=== PATIENT | male | born 1960 | race Caucasian/White ===

== ENCOUNTER 2017-01-19 14:13 | Emergency (ER) | payer OTHER ==
--- NOTE | 2017-01-19 14:53 | PHYS DOC ---
Past History Past Medical History: Other Past Surgical History: Tonsillectomy Alcohol Use: Occasionally Drug Use: None Adult General Chief Complaint Chief Complaint: DIZZY/LIGHT HEADED HPI HPI Patient is a 56 year old M who presents with lightheadedness over the past few days. He states that he has been feeding more animals recently and he has noted a moderate amount of debris in the air. He has been having more watering of the eyes associated with his symptoms. He does not have symptoms at this time. Review of Systems Review of Systems Constitutional: Denies fever or chills [] Eyes: Denies change in visual acuity, redness, or eye pain [] HENT: Denies sore throat [] Mild nasal congestion Respiratory: Denies cough or shortness of breath [] Cardiovascular: No additional information not addressed in HPI [] GI: Denies abdominal pain, nausea, vomiting, bloody stools or diarrhea [] : Denies dysuria or hematuria [] Musculoskeletal: Denies back pain or joint pain [] Integument: Denies rash or skin lesions [] Neurologic: Denies headache, focal weakness or sensory changes [] Endocrine: Denies polyuria or polydipsia [] Family History Family History noncontributory Current Medications Current Medications reviewed Allergies Allergies reviewed Physical Exam Physical Exam Constitutional: Well developed, well nourished, no acute distress, non-toxic appearance. [] HENT: Normocephalic, atraumatic, Mild nasal congestion bilaterally Eyes: PERRLA, EOMI, conjunctiva normal, no discharge. [] Neck: Normal range of motion, no tenderness, supple, no stridor. [] Cardiovascular:Heart rate regular rhythm, no murmur [] Lungs & Thorax: Bilateral breath sounds clear to auscultation [] Abdomen: Bowel sounds normal, soft, no tenderness, no masses, no pulsatile masses. [] Skin: Warm, dry, no erythema, no rash. [] Back: No tenderness, no CVA tenderness. [] Extremities: No tenderness, no cyanosis, no clubbing, ROM intact, no edema. [] Neurologic: Alert and oriented X 3, normal motor function, normal sensory function, no focal deficits noted. [] Psychologic: Affect normal, judgement normal, mood normal. [] Current Patient Data Vital Signs Vital Signs Date Time Temp Pulse Resp B/P (MAP) Pulse Ox O2 Delivery O2 Flow Rate FiO2 01/19/17 14:20 98.1 76 21 98 Room Air Course & Med Decision Making Course & Med Decision Making Pertinent Labs and Imaging studies reviewed. (See chart for details) [] Dragon Disclaimer Dragon Disclaimer This chart was dictated in whole or in part using Voice Recognition software in a busy, high-work load, and often noisy Emergency Department environment. It may contain unintended and wholly unrecognized errors or omissions. Departure Departure: Impression: Primary Impression: Rhinitis Disposition: HOME, SELF-CARE Referrals: RIA DE LEON MD (PCP) Patient Instructions: Allergic Rhinitis Additional Instructions: Mac was seen in the ED for lightheadedness. No emergency medical condition was found during the history and physical exam. His symptoms were consistent with an upper airway irritation. He was advised to use nasal steroids and nasal saline rinses. He was advised to follow up with his primary care doctor as needed Problem Qualifiers Primary Impression: Rhinitis Rhinitis type: unspecified Chronicity: unspecified Qualified Codes: J31.0 - Chronic rhinitis RAY DE LUNA MD Jan 19, 2017 14:53
[2017-01-19 15:04] VITALS: BP 141/95
== END 2017-01-19 15:04 | disposition home or self-care (01) ==
LOC: ER 14:13
DX: J31.0 Chronic rhinitis (principal)
CPT/HCPCS: 99281

== ENCOUNTER 2021-06-29 12:33 | Emergency (ER) | payer OTHER ==
[~2021-06-29] VITALS: Ht 182.9 cm; Wt 85.0 kg
--- NOTE | 2021-06-29 13:08 | RAD ---
EXAMINATION: Chest radiograph. VIEWS: 2 COMPARISON: None INDICATION:60 years, Male, cough. FINDINGS: Normal cardiomediastinal silhouette. Subtle patchy airspace opacities in bilateral perihilar and biba silar lungs. No pleural effusion or pneumothorax. No acute osseous process. IMPRESSION: Subtle patchy airspace opacities in bilateral perihilar and bibasilar lungs, may represent atelectati c changes versus atypical pneumonia. Recommend correlation with Covid 19 test. Electronically signed by: Stephan Severino MD (06/29/2021 1:06 PM) [id number]
--- NOTE | 2021-06-29 14:44 | PHYS DOC ---
Past History Past Medical History: Other Additional Past Medical Histor: CLL Past Surgical History: Tonsillectomy Alcohol Use: Occasionally Drug Use: None Adult General Chief Complaint Chief Complaint: COUGH HPI HPI Patient is a 60-year-old male who presents emergency department complaining of chest congestion with nonproductive cough, body aches and general malaise since this past . Patient denies being vaccinated for the COVID-19 virus or flu this year. Patient denies chest pains, chest palpitations, nausea, vomiting, diarrhea. Patient reports she was sent here by his primary care physician's office from Dr. Martinez with concerns he may have the COVID-19 virus. Patient wishes to be checked today. Patient does report a history of chronic lymphocytic leukemia, however states his oncologist told him his blood work was fine and does not show any signs of this disease and DC'd all of his cancer medications, will be evaluated in 3 months at the cancer clinic. Patient denies other physical complaints or physical concerns. Review of Systems Review of Systems 14 body systems of review of systems have been reviewed. See HPI for pertinent positives and negative responses, otherwise all other systems are negative, nonpertinent or noncontributory. Constitutional: Negative except as outlined in HPI above. Skin: Negative except as outlined in HPI above. Eyes: Negative except as outlined in HPI above. HENT: Negative except as outlined in HPI above. Respiratory: Negative except as outlined in HPI above. Cardiovascular: Negative except as outlined in HPI above. GI: Negative except as outlined in HPI above. : Negative except as outlined in HPI above. Musculoskeletal: Negative except as outlined in HPI above. Integument: Negative except as outlined in HPI above. Neurologic: Negative except as outlined in HPI above. Endocrine: Negative except as outlined in HPI above. Lymphatic: Negative except as outlined in HPI above. Psychiatric: Negative except as outlined in HPI above. Allergies Allergies Allergies Coded Allergies Type Severity Reaction Last Updated Verified No Known Drug Allergies 01/19/17 No Physical Exam Physical Exam Constitutional: Well developed, well nourished, no acute distress, non-toxic appearance. 60-year-old male in no apparent distress. HENT: Normocephalic, atraumatic. Eyes: Conjunctiva normal, no discharge. Neck: Normal range of motion, no stridor. Cardiovascular: No cyanosis appreciated, distal cap refill less than 2 seconds. Heart sounds S1-S2, tachycardic rate at 102 during physical examination. Lungs & Thorax: Patient is in no respiratory distress, no audible adventitious lung sounds appreciated. Lung sounds diminished in the bases bilaterally otherwise clear to auscultation all upper lung cid. Abdomen: Nontender, no abnormalities noted. Skin: Warm, dry, no erythema, no rash. Back: No tenderness, no deformities. Extremities: No tenderness, no cyanosis, no clubbing, ROM intact, no edema. Neurologic: Alert and oriented X 3, normal motor function, normal sensory function, no focal deficits noted. Psychologic: Affect normal, judgement normal, mood normal. Current Patient Data Vital Signs Vital Signs Date Time Temp Pulse Resp B/P (MAP) Pulse Ox O2 Delivery O2 Flow Rate FiO2 06/29/21 12:43 99.7 112 20 186/85 (118) 96 Room Air EKG EKG [] Radiology/Procedures Radiology/Procedures SEX: M EXAM STATUS: REG ER ORD. PHYSICIAN: EYAL RAMÍREZ DO REASON: cough PROCEDURE: CHEST PA & LATERAL EXAMINATION: Chest radiograph. VIEWS: 2 COMPARISON: None INDICATION:60 years, Male, cough. FINDINGS: Normal cardiomediastinal silhouette. Subtle patchy airspace opacities in bilateral perihilar and bibasilar lungs. No pleural effusion or pneumothorax. No acute osseous process. IMPRESSION: Subtle patchy airspace opacities in bilateral perihilar and bibasilar lungs, may represent atelectatic changes versus atypical pneumonia. Recommend correlation with Covid 19 test. Electronically signed by: Priscilla Severino MD (06/29/2021 1:06 PM) [id number] DICTATED AND SIGNED BY: PRISCILLA SEVERINO MD DATE: 06/29/21 1305 Heart Score C/O Chest Pain: No Risk Factors: Risk Factors: DM, Current or recent (<one month) smoker, HTN, HLP, family history of CAD, obesity. Risk Scores: Risk Factors: DM, Current or recent (<one month) smoker, HTN, HLP, family history of CAD, obesity. Course & Med Decision Making Course & Med Decision Making Pertinent Labs and Imaging studies reviewed. (See chart for details) 60-year-old male, vital signs reviewed, presents emergency department concerning COVID-19 virus symptoms. Physical examination concerning for viral illness, will order chest x-ray, COVID-19 testing. Patient chest x-ray consistent with viral pneumonia, suspicious for COVID-19 pneumonia, PCR/COVID-19 pending, will give Tylenol and Motrin for mild discomfort, 10 mg Decadron p.o., start azithromycin regimen. Discussed findings and ED discharge planning with patient, patient gave verbal u nderstanding of and is amenable to ED discharge planning, states he will follow with Dr. Martinez this coming week, reviewed return to ER precautions and concerns, strict return to ER for increased shortness of breath or development of chest pains, fevers, or other concerns. The patient remains nontoxic in appearance, he is not hypoxic, reevaluation of vital signs remained stable. Discussed with the patient all findings and diagnostic testing as well as the need to follow-up with their primary care provider for further evaluation and treatment or return to the ED if any new or worsening symptoms. Strict return precautions were also discussed at length, the patient voiced understanding and agreement with the discharge planning. The patient was nontoxic in appearance, in no apparent distress, and hemodynamically stable at the time of disposition. Dragon Disclaimer Dragon Disclaimer This electronic medical record was generated, in whole or in part, using a voice recognition dictation system. Departure Departure: Impression: Primary Impression: Atypical pneumonia Additional Impression: Person under investigation for COVID-19 Disposition: HOME / SELF CARE / HOMELESS Condition: GOOD Referrals: RIA MARTINEZ MD (PCP) Additional Instructions: You were seen today in the emergency department for viral illness type signs and symptoms. A COVID-19 test was drawn today and is still pending. Your chest x- ray shows concerning signs of a viral pneumonia, at this point you are a PUI which is a person under investigation for Covid19 infection. I have attached COVID-19 virus information to this document, please review. You were given Decadron and started on a antibiotic azithromycin regimen, as we discussed please take the antibiotic as prescribed until complete, use [id number] Tylenol and/or Motrin for returning body aches and pains, fevers and chills, please practice safe social distancing, return immediately to the emergency department for increased shortness of breath, inability to breathe, development of chest pains, or other concerns. Thank you for visiting our Emergency Department. It was a pleasure taking care of you today in the emergency department and we appreciate you trusting us with your care. If any additional problems come up don't hesitate to return to visit us. Please follow up with your primary care provider so they can plan additional care if needed and know about the problem that you had. If symptoms worsen come back to the Emergency Department. Any concerning symptoms that start such as chest pain, shortness of air, weakness or numbness on one side of the body, running high fevers or any other concerning symptoms return to the ER. EMERGENCY DEPARTMENT GENERAL DISCHARGE INSTRUCTIONS Thank you for coming to [facility] (ED) today and trusting us with you care. We trust that you had a positivie experience in our Emergency Department. If you wish to speak to the department management, you may call the director at [phone]. YOUR FOLLOW UP INSTRUCTIONS ARE FOLLOWS: 1. Do you have a private Doctor? If you do not have a private doctor, please ask for a resource list of physicians or clinics that may be able to assist you with follow up care. 2. The Emergency Physician has interpreted your x-rays. The X-Ray specialist will also review them. If there is a change in the findings, you will be notified in 48 hours when at all possible. 3. A lab test or culture has been done, your results will be reviewed and you will be notified if you need a change in treatment. ADDITIONAL INSTRUCTIONS AND INFORMATION: 1. Your care today has been supervised by a physician who is specially trained in emergency care. Many problems require more than one evaluation for a complete diagnosis and treatment. We recommend that you schedule your follow up appointment as recommended to ensure complete treatment of you illness or injury. If you are unable to obtain follow up care and continue to have a problem, or if your condition worsens, we recommend that you return to the ED. 2. We are not able to safely determine your condition over the phone nor are we able to give sound medical advice over the phone. For these safety reasons, if you call for medical advice we will ask you to come to the ED for further evaluation. 3. If you have any questions regarding these discharge instructions please call the ED at [phone]. SAFETY INFORMATION: In the interest of safety, wellness, and injury prevention; we encourage you to wear your sealbelt, if you smoke; quite smoking, and we encourage family to use a protective helmet for bicycling and other sporting events that present an increased risk for head injury. IF YOUR SYMPTOMS WORSEN OR NEW SYMPTOMS DEVELOP, OR YOU HAVE CONCERNS ABOUT YOUR CONDITION; OR IF YOUR CONDITION WORSENS WHILE YOU ARE WAITING FOR YOUR FOLLOW UP APPOINTMENT; EITHER CONTACT YOUR PRIMARY CARE DOCTOR, THE PHYSICIAN WHOSE NAME AND NUMBER YOU WERE GIVEN, OR RETURN TO THE ED IMMEDIATELY. Scripts Azithromycin (AZITHROMYCIN TABLET) 250 Mg Tablet 1 PKG PO UD for atypical pneumonia for 5 Days, #6 TAB 0 Refills 2 the first day followed by 1 for days 2-5 Prov: RYAN CARREON APRN 06/29/21 Problem Qualifiers RYAN CARREON APRN Jun 29, 2021 14:44
[2021-06-29] MEDS ORDERED: IBUPROFEN 600 MG TABLET. PO ONE (14:45)
[2021-06-29] MEDS ORDERED: DEXAMETHASONE SOD PHOS 10 MG/ML VIAL. PO ONE (14:45)
[2021-06-29] MEDS ORDERED: ACETAMINOPHEN 500 MG TABLET PO ONE (14:45)
[2021-06-29] MEDS ORDERED: AZITHROMYCIN 250 MG TABLET. PO ONE (14:45)
[2021-06-29] MEDS ORDERED: AZITHROMYCIN 250 MG TABLET. ONE (14:49)
[2021-06-29] MEDS ORDERED: ACETAMINOPHEN 325 MG TABLET PO ONE (14:49)
[2021-06-29 15:00] VITALS: BP 141/76
[2021-06-29] MEDS ORDERED: AZIT250T6 PO (15:10)
== END 2021-06-29 15:18 | disposition home or self-care (01) ==
LOC: ER 12:33
DX: U07.1 COVID-19 (principal); J18.9 Pneumonia, unspecified organism
CPT/HCPCS: 71046; 99283; C9803; U0003